=== PATIENT | male | born 1940 | race Caucasian/White ===

== ENCOUNTER → 2025-06-10 | Outpatient (CLI) | payer MEDICARE ==
[~2025-06-10] MED LIST: ASPI81TA86 PO; ATOR1TAB21 PO; CENTTAB PO; CITRTAB18 PO; HYDR-3363 PO; LEVOTAB10 PO; METF500T13 PO; RANI-397 PO
== END ==
LOC: M SOG 07:34
PROVIDERS: ATTEND Neuromusculoskeletal Medicine, Sports Medicine
DX: M25.562 Pain in left knee (principal)